=== PATIENT | male | born 1965 | race Caucasian/White ===

== ENCOUNTER 2021-11-12 13:34 | Emergency (ER) | payer BC ==
[~2021-11-12] VITALS: Ht 175.3 cm; Wt 86.4 kg
[2021-11-12 13:48] VITALS: BP 142/81
[2021-11-12] MEDS ORDERED: TETanus/Pertussis (Acell)/Diphther VAC/PF (Tdap-Adult) 0.5ml syringe IMVAC ONE (15:05)
[2021-11-12] MEDS ORDERED: bacitracin 15gm ointment TP ONE (15:10)
[2021-11-12] MEDS ORDERED: LIDOcaine 1% W/epiNEPHrine 1:100,000 20ml vial IJ ONE (15:10)
== END 2021-11-12 17:08 | disposition home or self-care (01) ==
LOC: ER 13:35
DX: S61.212A Laceration without foreign body of right middle finger without damage to nail, initial encounter (principal); S61.214A Laceration without foreign body of right ring finger without damage to nail, initial encounter; W45.8XXA Other foreign body or object entering through skin, initial encounter; Y93.89 Activity, other specified; Y92.89 Other specified places as the place of occurrence of the external cause; Y99.8 Other external cause status
CPT/HCPCS: 12001; 73130; 90471; 90715; 99283